=== PATIENT | male | born 1990 | race Caucasian/White ===

== ENCOUNTER 2020-11-25 19:18 | Emergency (ER) | payer MEDICAID ==
[~2020-11-25] VITALS: Ht 172.7 cm; Wt 81.6 kg
[2020-11-25 19:34] VITALS: BP_SYST 213
[2020-11-25] MEDS ORDERED: cloNIDine HCL 0.1 MG TABLET PO ONE (19:45)
[2020-11-25] MEDS ORDERED: LISI20TA30 PO (19:54)
[2020-11-25 21:17] VITALS: BP_SYST 181
== END 2020-11-25 21:18 | disposition home or self-care (01) ==
LOC: SED 19:18
DX: I10 Essential (primary) hypertension (principal); Z79.899 Other long term (current) drug therapy
CPT/HCPCS: 99283

== ENCOUNTER 2021-01-18 00:27 | Emergency (ER) | payer MEDICAID ==
[~2021-01-18] VITALS: Ht 172.7 cm; Wt 90.7 kg
[~2021-01-18 00:27] MED LIST: LISI20TA30 PO
[2021-01-18 00:45] VITALS: BP_SYST 202
[2021-01-18] MEDS ORDERED: ENALAPRILAT DIHYDRATE 1.25 MG/ML VIAL IVP ONE (01:00)
[2021-01-18] MEDS ORDERED: hydrALAZINE HCL 20 MG/ML VIAL IVP ONE (01:00)
[2021-01-18 01:38] LABS: BASOPHILS % (AUTO) 0.7 % (0.0-2.0); EOSINOPHILS # (AUTO) 0.2 K/uL (0.0-0.4); EOSINOPHILS % (AUTO) 2.7 % (0.0-4.0); HEMATOCRIT 38.6 % (36-54); HEMOGLOBIN 13.1 g/dL (14.0-18.0); LYMPHOCYTES # (AUTO) 2.4 K/uL (1.0-5.5); LYMPHOCYTES % (AUTO) 36.6 % (20.5-51.5); MEAN CORPUSCULAR HEMOGLOBIN 31 pg (27-31); MEAN CORPUSCULAR HGB CONC 34 % (32-36); MEAN CORPUSCULAR VOLUME 92 fL (79.0-98.0); MONOCYTES # (AUTO) 0.6 K/uL (0.0-1.0); MONOCYTES % (AUTO) 8.9 % (1.7-9.3); NEUTROPHILS # (AUTO) 3.3 K/uL (1.8-7.7); NEUTROPHILS % (AUTO) 51.1 % (40.0-70.0); PLATELET COUNT (AUTO) 245 K/uL (130-430); RED BLOOD CELL COUNT(AUTO) 4.21 MIL/uL (4.2-6.2); RED CELL DISTRIBUTION WIDTH 13.5 % (9.0-15.0); WHITE BLOOD COUNT (AUTO) 6.5 K/uL (4.8-10.8)
[2021-01-18 01:40] LABS: ANION GAP 9 (5-15); CALCIUM 8.1 mg/dL (8.4-11.0); CHLORIDE 108 mmol/L (98-107); CREATININE 1.18 mg/dL (0.55-1.30); GLUCOSE 102 mg/dL (70-99); POTASSIUM 4.5 mmol/L (3.5-5.1); SODIUM SERUM 142 mmol/L (136-145); UREA NITROGEN, BLOOD 11 mg/dL (8-21)
[2021-01-18 01:47] LABS: ALANINE AMINOTRANSFERASE 19 U/L (12-78); ALBUMIN 3.4 g/dL (3.4-4.8); ASPARTATE AMINOTRANSFERASE 17 U/L (10-37); GFR AFRICAN AMERICAN 95 mL/min (>90); TOTAL BILIRUBIN < 0.1 mg/dL (0.0-1.0)
[2021-01-18] MEDS ORDERED: LABETALOL 100 MG/ 20ML VIAL ONE (02:40)
[2021-01-18] MEDS ORDERED: LABETALOL 100 MG/ 20ML VIAL IVP ONE (02:45)
[2021-01-18] MEDS ORDERED: cloNIDine HCL 0.1 MG TABLET PO ONE ×2 (03:00→03:45)
[2021-01-18] MEDS ORDERED: cloNIDine HCL 0.1 MG TABLET ONE (03:44)
[2021-01-18] MEDS ORDERED: LOSA1TAB40 PO ×3 (04:49→15:59)
[2021-01-18] MEDS ORDERED: ALBMDI INH ×3 (04:58→15:59)
[2021-01-18 05:02] VITALS: BP_SYST 166
[2021-01-18] MEDS ORDERED: LISI20TA30 PO ×2 (10:48→15:59)
== END 2021-01-18 05:02 | disposition home or self-care (01) ==
LOC: SED 00:27
DX: I10 Essential (primary) hypertension (principal); F17.290 Nicotine dependence, other tobacco product, uncomplicated; Z79.899 Other long term (current) drug therapy; Z71.6 Tobacco abuse counseling
CPT/HCPCS: 36415; 80053; 85025; 93005; 96374; 96375; 99291; J0360; J3490

== ENCOUNTER 2024-01-07 10:51 | Emergency (ER) | payer OTHER ==
[~2024-01-07] VITALS: Ht 172.7 cm; Wt 95.3 kg
[~2024-01-07 10:51] MED LIST changes: +ALBMDI INH; +LOSA1TAB40 PO
[2024-01-07 11:07] VITALS: BP_SYST 179; PULSE 101; RESP 16; TEMP 98.6; O2SAT 97
[2024-01-07] MEDS: METOPROLOL TARTRATE 25 MG TABLET PO ONE (12:21)
[2024-01-07] MEDS: KETOROLAC TROMETHAMINE 30 MG VIAL IM ONE (12:51)
[2024-01-07] MEDS: LOSARTAN POTASSIUM 50 MG TABLET (COZAAR) PO ONE (12:51)
[2024-01-07] MEDS ORDERED: IBUP-1969 PO (14:27)
[2024-01-07] MEDS ORDERED: METH-634 PO (14:27)
[2024-01-07 14:50] VITALS: BP_SYST 161; PULSE 88; RESP 18; TEMP 98.6; O2SAT 97
== END 2024-01-07 14:52 | disposition home or self-care (01) ==
LOC: SED 10:51
DX: S16.1XXA Strain of muscle, fascia and tendon at neck level, initial encounter (principal); S50.812A Abrasion of left forearm, initial encounter; I10 Essential (primary) hypertension; Z79.899 Other long term (current) drug therapy; Z79.2 Long term (current) use of antibiotics; V89.2XXA Person injured in unspecified motor-vehicle accident, traffic, initial encounter; Y93.89 Activity, other specified; Y92.89 Other specified places as the place of occurrence of the external cause; Y99.8 Other external cause status
CPT/HCPCS: 99285; 96372; J1885